=== PATIENT | male | born 1995 | race Caucasian/White ===

== ENCOUNTER 2023-10-15 18:06 | Emergency (ER) | payer BC, SELFPAY ==
[2023-10-15 18:11] VITALS: BP 144/87; PULSE 65; RESP 18; TEMP 37.3; O2SAT 97; BMI 29.6
--- NOTE | 2023-10-15 18:51 | ED.GENADULT ---
HPI - General Adult General Chief complaint: Unspecified Complaint, Adult Stated complaint: Pain in anus area Time Seen by Provider: 10/15/23 18:23 History of Present Illness HPI narrative: history of anal fissures. states is in horrible pain. pain has been progressively worse x 2 years . today unbearable after BM 27-year-old man presenting to the emergency department with complaint of anal fissure related terrible pain. Actually has been escalating over the last week following a couple hard bowel movements. He describes after now again normal bowel movements hours of horrible spasming pain or has to just do anything to find a distraction. He does not sure that he can go through another year of this. In 2019 apparently had 1st experience with anal fissure and then in 2021 had a lateral sphincterotomy. Overall was improved though with spots of pain here and there. Is very worried about what the next weeks will bring. Has already made an appointment with a ?GI specialist? at [facility] [place] and that is in nearly 3 weeks from now. He would return to his colorectal surgeon but insurance has changed. Has been trying some [id number] cream. He is uncertain if he can continue to use his steroid suppositories long-term. Most comfortable position is seated forward on a firm chair. Related Data Previous Rx's Medication Instructions Recorded ketorolac 10 mg tablet 10 mg PO TID PRN pain 5 days #15 10/15/23 tabs lidocaine HCl 4 % topical cream 1 applic topical QID PRN pain #120 10/15/23 grams nitroglycerin 0.4 % (w/w) rectal 1 inch VA BID-TID PRN anal 10/15/23 ointment pain/spasm #30 grams polyethylene glycol 3350 17 17 g PO .daily-tid PRN #850 grams 10/15/23 gram/dose oral powder witch iban 86 % topical solution 2 ml topical QID PRN #473 mL 10/15/23 Allergies Allergy/AdvReac Type Severity Reaction Status Date / Time No Known Drug Allergies Allergy Verified 10/15/23 18:14 Review of Systems Status of ROS: Reports: 6 or more systems reviewed and unremarkable except as noted in History and below PFSH PFSH Social History Smoking Status: Former smoker Non-prescribed substance use: marijuana (any form) Exam Narrative: Exam Narrative: Tall. Intermittent eye contact. Somewhat depressed affect. Breathing easily. Transitions without significant difficulty. Abdomen is soft and nontender. Heart in normal rate. Anal exam showing 3 o'clock position fullness consistent with possible internal hemorrhoid. No inflammatory changes. Cream over the area and will area. No bleeding. Anoscopy was not done due to anticipated sensitivity. Const: Vital Signs, click to edit/add: Vital Signs - 24 hr 10/15/23 18:11 Temperature 99.1 F Pulse Rate [Right Pulse Oximeter] 65 Respiratory Rate 18 Blood Pressure [Ri ght Upper Arm] 144/87 H Pulse Oximetry 97 Oxygen Delivery Me thod Room Air Documenting provider has reviewed patient's vital signs: yes Course Vital Signs Vital signs: Initial Vital Signs Temperature 99.1 F 10/15/23 18:11 Temperature Source Temporal Artery Scan 10/15/23 18:11 Pulse Rate 65 10/15/23 18:11 Respiratory Rate 18 10/15/23 18:11 Blood Pressure 144/87 H 10/15/23 18:11 Blood Pressure Mean 106 H 10/15/23 18:11 Blood Pressure Position Sitting 10/15/23 18:11 Pulse Oximetry 97 10/15/23 18:11 Oxygen Delivery Method Room Air 10/15/23 18:11 Vital Signs Temperature 99.1 F 10/15/23 18:11 Pulse Rate 65 10/15/23 18:11 Respiratory Rate 18 10/15/23 18:11 Blood Pressure 144/87 H 10/15/23 18:11 Pulse Oximetry 97 10/15/23 18:11 Oxygen Delivery Method Room Air 10/15/23 18:11 Temperature 99.1 F 10/15/23 18:11 Pulse Rate 65 10/15/23 18:11 Respiratory Rate 18 10/15/23 18:11 Blood Pressure 144/87 H 10/15/23 18:11 Pulse Oximetry 97 10/15/23 18:11 Oxygen Delivery Method Room Air 10/15/23 18:11 Medical Decision Making MDM Narrative Medical decision making narrative: I suspect this is exacerbation of anal fissure. Possibly with some pelvic floor dysfunction otherwise. Could offer only temporary relief with localized injectable anesthetic. I think would be too sensitive to tolerate this however. And it would only be temporary. Nitroglycerin or nifedipine type creams might be beneficial. Sounds like got behind in some hydration and usual diet management. Discussed with on-call surgeon for further recommendations. At end of visit Alex appeared a little more upbeat. Was able to demonstrate some forward thinking; things is looking forward to. See patient discharge plan for further discussion and prescriptions Discharge Plan Discharge Clinical Impression: Anal pain, Anal fissure Patient Disposition: Home w/ Parent or Adult Condition: Stable Additional Instructions: It is critical that you stay well-hydrated. You have to plan ahead here. The liquid does not only have to be water. Soups count. But you need to drink at least 2-3 L of liquid per day as you had been doing before. And then you have to have enough fiber in the form of fruits or vegetables or MiraLax in your diet to keep stool soft. Be sure you get in some fiber and liquid yet tonight. MiraLax equivalent, indeed all of the medications but ketorolac and nitroglycerin, are available [id number] in some form if insurance coverage is an issue. You can always ask for less of the medication than prescribed as well. Or perhaps another form containing the same active ingredient might be more affordable. Alternative to the ketorolac might be up to 800 mg of ibuprofen 3-4 times daily or up to 500 mg naproxen 2 times daily. Schedule follow-up with your primary care provider for next week if possible if adjustments need to be made to your medications or you need more pain management. Please follow-up as scheduled with [facility]. Our on-call surgeon Dr. Paez suggested [facility] as recommended specialists if needed. Okay to return for uncontrolled pain. Do plan something to look forward to weekly. Continue to spend intentional time with friends. Otherwise if you feel like you are struggling emotionally, if after talking to family and friends you might feel unsafe, please return. Prescriptions: New nitroglycerin 0.4 % (w/w) ointment 1 inch VA BID-TID PRN (Reason: anal pain/spasm) Qty: 30 0RF ketorolac 10 mg tablet 10 mg PO TID PRN (Reason: pain) 5 Days Qty: 15 0RF lidocaine HCl 4 % cream 1 applic topical QID PRN (Reason: pain) Qty: 120 1RF witch iban 86 % solution 2 ml topical QID PRNQty: 473 1RF Rx Instructions: apply on pad/cotton ball and to anal area polyethylene glycol 3350 17 gram/dose powder 17 g PO .daily-tid PRNQty: 850 1RF Follow Up/Referrals: Provider,Not a Local [Primary Care Provider] - Stand Alone Forms: [employer] Info Instructions
== END 2023-10-15 20:37 | disposition home or self-care (01) ==
PROVIDERS: Emergency Provider Family Medicine
DX: K60.2 Anal fissure, unspecified (principal)
CPT/HCPCS: 99283; 99284